=== PATIENT | male | born 1980 | race Hispanic/Latino ===

== ENCOUNTER 2018-01-26 10:20 | Emergency (ER) | payer SELFPAY ==
[2018-01-26] MEDS ORDERED: TETANUS & DIPHTHERIA TOX,ADULT 0.5 ML VIAL ONE (10:49)
--- NOTE | 2018-01-26 11:31 | ER ---
Nurse's Notes [facility] Name: Jorge Ramesh Age: 37 yrs Sex: Male : 1980 Arrival Date: 01/26/2018 Time: 10:23 Bed 12 Private MD: None, None Diagnosis: Puncture wound without foreign body of foot-Right Presentation: 01/26 10:25 Presenting complaint: Patient states: I think stepped on a needle and syringe while ch mowing a yard yesterday. it went thru my shoe and punctured my L foot. today its very sore. Care prior to arrival: None. Mechanism of Injury: Penetrating trauma inflicted by unknow possible stepped on a needle. Trauma event details: Injury occurred in the [facility], Injury occurred: at home. Injury occurred: January 25, 2018 Injury occurred at: 17:00. 10:25 Acuity: GLADYS 4 10:25 Method Of Arrival: Ambulatory 10:28 Transition of care: patient was not received from another setting of care. Onset of ch symptoms was January 25, 2018 at 17:00. Risk Assessment: Do you want to hurt yourself or someone else? Patient reports no desire to harm self or others. Initial Sepsis Screen: Does the patient meet any 2 criteria? No. Patient's initial sepsis screen is negative. Does the patient have a suspected source of infection? No. Patient's initial sepsis screen is negative. Trauma Activation: Not Applicable Physician: ED Physician; Name: ; Notified At: ; Arrived At: Physician: General Surgeon; Name: ; Notified At: ; Arrived At: Physician: Radiology; Name: ; Notified At: ; Arrived At: Physician: Respiratory; Name: ; Notified At: ; Arrived At: Physician: Lab; Name: ; Notified At: ; Arrived At: Historical: - Allergies: 10:29 PENICILLINS; ch - Home Meds: 10:29 None [Active]; ch - PMHx: 10:29 None; ch - PSHx: 10:29 None; ch - Immunization history: Last tetanus immunization: unknown. - Social history:: Smoking status: Patient uses tobacco products, denies chronic smoking, but will smoke occasionally, Patient/guardian denies using alcohol, street drugs. - Ebola Screening: : Patient negative for fever greater than or equal to 101.5 degrees Fahrenheit, and additional compatible Ebola Virus Disease symptoms Patient denies exposure to infectious person Patient denies travel to an Ebola-affected area in the 21 days before illness onset No symptoms or risks identified at this time. Screenin:25 Abuse screen: Denies threats or abuse. Denies injuries from another. Tuberculosis ch screening: No symptoms or risk factors identified. Primary Survey: 10:25 A: Airway: patent. Breathing/Chest: Respiratory pattern: regular. Circulation: Pulses: palpable bilateral radial, brachial, femoral, popliteal, posterior tibial and and dorsalis pedis arteries.. Disability Alert. Secondary Survey: 10:25 HEENT: No deficits noted. Gastrointestinal: No deficits noted. : No signs and/or ch symptoms were reported regarding the genitourinary system. Musculoskeletal: Reports pain in right foot. Assessment: 10:25 General: Appears in no apparent distress. comfortable, Behavior is calm, cooperative, ch appropriate for age. Pain: Complains of pain in right foot Pain currently is 3 out of 10 on a pain scale. at worst was 4 out of 10 on a pain scale. Respiratory: No deficits noted. 10:29 Reassessment: Patient appears in no apparent distress at this time. Patient and/or family updated on plan of care and expected duration. Pain level reassessed. Patient is alert, oriented x 3, equal unlabored respirations, skin warm/dry/pink. 11:00 Reassessment: Patient appears in no apparent distress at this time. No changes from previously documented assessment. Patient and/or family updated on plan of care and expected duration. Pain level reassessed. Patient is alert, oriented x 3, equal unlabored respirations, skin warm/dry/pink. Vital Signs: 10:25 BP 127 / 87; Pulse 94; Resp 15; Temp 98.6; Pulse Ox 99% on R/A; Weight 90.72 kg; Height 5 ft. 7 in. (170.18 cm); Pain 3/10; 10:25 Body Mass Index 31.32 (90.72 kg, 170.18 cm) [place] Coma Score: 10:25 Eye Response: spontaneous(4). Verbal Response: oriented(5). Motor Response: obeys commands(6). Total: 15. Trauma Score (Adult): 10:25 Eye Response: spontaneous(1); Verbal Response: oriented(1); Motor Response: obeys commands(2); Systolic BP: > 89 mm Hg(4); Respiratory Rate: 10 to 29 per min(4); [place] Score: 15; Trauma Score: 12 ED Course: 10:23 Patient arrived in ED. sb2 10:24 None, None is Private Physician. sb2 10:25 Patient has correct armband on for positive identification. Bed in low position. Call light in reach. 10:25 Patient maintains SpO2 saturation greater than 95% on room air. ch 10:27 Triage completed. ch 10:29 Patient placed in an exam room, on a stretcher. ch 10:32 Luis Del Castillo PA is PHCP. cp 10:32 González Da Silva MD is Attending Physician. cp 10:48 Melani Caicedo, KWAME is Primary Nurse. ch 10:55 X-ray completed. Portable x-ray completed in exam room. Patient tolerated procedure jb2 well. 11:04 XRAY Foot RIGHT 2 View In Process Unspecified. 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 Exp: 01/27/2020. Lot #: [id number]. } Route: IM; Site: left deltoid; 11:00 Follow up: Response: No adverse reaction ch 10:59 Not Given (Patient Refused): Ibuprofen 800 mg PO once ch Intake: 10:25 PO: 0ml; Total: 0ml. Outcome: 11:31 Discharge ordered by MD. cp 11:41 Discharged to home ambulatory. dm5 11:41 Condition: good 11:41 Discharge instructions given to pt left prior to signing discharge paperwork. 11:42 Patient left the ED. dm5 Signatures: Dispatcher [employer] EDMS Melani Caicedo, RN Davina Wheeler ch, RN RN dm5 Cesar Bond jb2 Luis Del Castillo PA PA cp Billeau, Sheri sb2
--- NOTE | 2018-01-26 11:31 | EDPHYS ---
Physician Documentation [facility] Name: Jorge Ramesh Age: 37 yrs Sex: Male : 1980 Arrival Date: 01/26/2018 Time: 10:23 Bed 12 Private MD: None, None ED Physician González Da Silva HPI: 01/26 10:38 This 37 yrs old Male presents to ER via Ambulatory with complaints of Puncture cp Wound To Foot. 10:38 The patient presents with pain, that is acute, a puncture wound, from a needle. The cp complaints affect the plantar surface of right heel. Onset: The symptoms/episode began/occurred yesterday. 10:38 Associated signs and symptoms: Pertinent positives: pain to right heel, Pertinent cp negatives: calf tenderness, fever, bleeding. Historical: - Allergies: 10:29 PENICILLINS; ch - Home Meds: 10:29 None [Active]; ch - PMHx: 10:29 None; ch - PSHx: 10:29 None; ch - Immunization history: Last tetanus immunization: unknown. - Social history:: Smoking status: Patient uses tobacco products, denies chronic smoking, but will smoke occasionally, Patient/guardian denies using alcohol, street drugs. - Ebola Screening: : Patient negative for fever greater than or equal to 101.5 degrees Fahrenheit, and additional compatible Ebola Virus Disease symptoms Patient denies exposure to infectious person Patient denies travel to an Ebola-affected area in the 21 days before illness onset No symptoms or risks identified at this time. ROS: 10:45 Constitutional: Negative for body aches, chills, fever, poor PO intake. cp 10:45 Eyes: Negative for injury, pain, redness, and discharge. cp 10:45 ENT: Negative for drainage from ear(s), ear pain, sore throat, difficulty swallowing, difficulty handling secretions. 10:45 Cardiovascular: Negative for chest pain, edema, palpitations. 10:45 Respiratory: Negative for cough, shortness of breath, wheezing. 10:45 Abdomen/GI: Negative for abdominal pain, nausea, vomiting, and diarrhea. 10:45 MS/extremity: Positive for pain, puncture, of the heel of right foot. 10:45 Skin: Negative for ecchymosis, active bleeding. 10:45 All other systems are negative. Exam: 10:50 Constitutional: The patient appears in no acute distress, alert, awake, well developed, cp well nourished. 10:50 Head/Face: Normocephalic, atraumatic. cp 10:50 Eyes: Periorbital structures: appear normal, Conjunctiva: normal, no exudate, no injection, Lids and lashes: appear normal, bilaterally. 10:50 ENT: External ear(s): are unremarkable, Nose: is normal, Mouth: is normal, Posterior pharynx: is normal, airway is patent. 10:50 Chest/axilla: Inspection: normal. 10:50 Cardiovascular: Rate: normal. 10:50 Respiratory: the patient does not display signs of respiratory distress, Respirations: normal, no use of accessory muscles, no retractions, no splinting, no tachypnea. 10:50 Musculoskeletal/extremity: Extremities: grossly normal except: noted in the heel right foot: tenderness, There is no evidence of cellulitis, active bleeding. Vital Signs: 10:25 BP 127 / 87; Pulse 94; Resp 15; Temp 98.6; Pulse Ox 99% on R/A; Weight 90.72 kg; Height ch 5 ft. 7 in. (170.18 cm); Pain 3/10; 10:25 Body Mass Index 31.32 (90.72 kg, 170.18 cm) ch [place] Coma Score: 10:25 Eye Response: spontaneous(4). Verbal Response: oriented(5). Motor Response: obeys commands(6). Total: 15. Trauma Score (Adult): 10:25 Eye Response: spontaneous(1); Verbal Response: oriented(1); Motor Response: obeys commands(2); Systolic BP: > 89 mm Hg(4); Respiratory Rate: 10 to 29 per min(4); [place] Score: 15; Trauma Score: 12 MDM: 10:30 Differential diagnosis: fracture, cellulitis, retained foreign body, abscess. cp 10:33 Patient medically screened. cp 11:30 Data reviewed: vital signs, nurses notes, radiologic studies, plain films. cp 11:30 Test interpretation: by ED physician or midlevel provider: plain radiologic studies. cp Counseling: I had a detailed discussion with the patient and/or guardian regarding: the historical points, exam findings, and any diagnostic results supporting the discharge/admit diagnosis, radiology results, to return to the emergency department if symptoms worsen or persist or if there are any questions or concerns that arise at home. Special discussion: I discussed in detail with the patient the higher chance of wound infection based on his presenting history. 01/26 10:30 Order name: XRAY Foot RIGHT 2 View; Complete Time: 11:34 01/26 11:34 Interpretation: Report reviewed. 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 Exp: 01/27/2020. Lot #: [id number]. } Route: IM; Site: left deltoid; 11:00 Follow up: Response: No adverse reaction 10:59 Not Given (Patient Refused): Ibuprofen 800 mg PO once Disposition: 16:56 Co-signature as Attending Physician, González Da Silva MD I agree with the assessment and kdr plan of care. Disposition: 01/26/18 11:31 Discharged to Home. Impression: Puncture wound without foreign body of foot - Right. - Condition is Stable. - Discharge Instructions: Puncture Wound. - Prescriptions for Cipro 500 mg Oral Tablet - take 1 tablet by ORAL route every 12 hours for 7 days; 14 tablet. - Medication Reconciliation Form, Thank You Letter, Antibiotic Education, Prescription Opioid Use form. - Follow up: Private Physician; When: 48 Hours; Reason: Recheck today's complaints. - Problem is new. - Symptoms are unchanged. Signatures: Dispatcher [employer] EDMS Melani Caicedo RN RN Davina Arshad RN RN dmGonzález Garcia MD MD [facility] Luis Del Castillo PA PA Corrections: (The following items were deleted from the chart) 10:59 10:38 Crutches ordered. [facility] 11:42 11:31 01/26/2018 11:31 Discharged to Home. Impression: Puncture wound without foreign dm5 body of foot - Right. Condition is Stable. Forms are Medication Reconciliation Form, Thank You Letter, Antibiotic Education, Prescription Opioid Use. Follow up: Private Physician; When: 48 Hours; Reason: Recheck today's complaints. Problem is new. Symptoms are unchanged. cp
--- NOTE | 2018-01-26 11:33 | RAD REPORT ---
EXAM DESCRIPTION: RAD - Foot Right 2 View - 01/26/2018 11:04 am CLINICAL HISTORY: PAIN COMPARISON: No comparisons FINDINGS: No foreign body is visualized. No bone or joint abnormality is seen.
== END 2018-01-26 11:42 | disposition home or self-care (01) ==
LOC: ER 10:20
DX: S91.331A Puncture wound without foreign body, right foot, initial encounter (principal); W26.8XXA Contact with other sharp object(s), not elsewhere classified, initial encounter; Y93.9 Activity, unspecified; Y92.9 Unspecified place or not applicable; Z23 Encounter for immunization; Z72.0 Tobacco use; Z88.0 Allergy status to penicillin
CPT/HCPCS: 90714; 99284